=== PATIENT | female | born 1960 | race Caucasian/White ===

== ENCOUNTER 2018-01-12 12:39 | Emergency (ER) | payer BC ==
[~2018-01-12] VITALS: Ht 170.2 cm; Wt 79.9 kg
[2018-01-12 12:47] VITALS: TEMP 36.8; Ht 170.2 cm; Wt 79.9 kg
[2018-01-12] MEDS ORDERED: ONDANSETRON INJ 2 MG/ML 2 ML VIAL IV STA (13:23)
[2018-01-12] MEDS ORDERED: ACETAMINOPHEN 500 MG TAB PO STA (13:23)
[2018-01-12] MEDS ORDERED: KETOROLAC TROMETHAMINE 30 MG/ML VIAL IV STA (13:23)
[2018-01-12] MEDS ORDERED: ALBUT/IPRATROP 3MG/0.5MG NEB 3 ML VIAL INH STA (13:23)
[2018-01-12] MEDS ORDERED: COUGH DROP (SUGAR FREE) LOZ 24 LOZ/1 BOX LOZ STA (13:23)
[2018-01-12] MEDS ORDERED: FAMOTIDINE 20 MG TAB PO ONE (13:30)
[2018-01-12] MEDS ORDERED: BENZONATATE 100MG CAP PO ONE (13:30)
--- NOTE | 2018-01-12 13:41 | DIAGNOSTIC IMAGING REPORT ---
CHEST ONE VIEW PORTABLE CLINICAL HISTORY: 57 years-old Female presenting with EVALUATE RESPIRATORY DISTRESS.DYSPNEA. TECHNIQUE: Portable upright AP view of the chest was obtained. COMPARISON: None. FINDINGS: Cardiomediastinal silhouette normal. Opacity in the right mid to lower lung without obscuration of the right heart border. No pleural effusion or pneumothorax. Degenerative changes of the thoracic spine. Upper abdomen normal. IMPRESSION: 1. Findings consistent with right mid to lower lung pneumonia, likely within the right lower lobe. Electronically signed by: Nehemiah Rdz M.D. 01/12/2018 1:40 PM Dictated Date/Time: 01/12/2018 1:39 PM
[2018-01-12 13:43] VITALS: O2SAT 95
[2018-01-12 13:55] LABS: BASO % 0.1 %; BASO ABS # 0.01 K/uL (0-0.2); EOS % 9.6 %; EOS ABS # 0.78 K/uL (0-0.5); HEMATOCRIT 36.4 % (37-47); HEMOGLOBIN 12.9 g/dL (12.0-16.0); IG# 0.03 K/uL (0.00-0.02); LYMPH % 9.9 %; MEAN CELL VOLUME 89.9 fL (80-100); MEAN CORPUSCULAR HEMOGLOBIN 31.9 pg (25-34); MEAN CORPUSCULAR HGB CONC 35.4 g/dl (32-36); MONO % 2.7 %; MONO ABS # 0.22 K/uL (0.11-0.59); NEUT % 77.3 %; NEUT ABS # 6.28 K/uL (1.4-6.5); PLATELET COUNT 181 K/uL (130-400); RED CELL DISTRIBUTION WIDTH CV 12.7 % (11.5-14.5); WHITE BLOOD COUNT 8.12 K/uL (4.8-10.8)
[2018-01-12 14:07] LABS: ALBUMIN 3.2 gm/dl (3.4-5.0); CALCIUM 8.6 mg/dl (8.5-10.1); CREATININE 0.68 mg/dl (0.60-1.20); POTASSIUM 3.1 mmol/L (3.5-5.1)
[2018-01-12 14:09] LABS: TOTAL PROTEIN 6.8 gm/dl (6.4-8.2)
[2018-01-12] MEDS ORDERED: EPP3/2 IM (14:26)
[2018-01-12] MEDS ORDERED: DICY20TA10 PO (14:26)
[2018-01-12] MEDS ORDERED: CYNI1000 IM (14:26)
[2018-01-12] MEDS ORDERED: TRAM-10 PO (14:26)
[2018-01-12] MEDS ORDERED: LORA-741 PO (14:26)
[2018-01-12] MEDS ORDERED: IBUP-1428 PO (14:26)
[2018-01-12] MEDS ORDERED: LEVOFLOXACIN 750 MG TAB PO ONE (14:30)
[2018-01-12 14:36] LABS: INFLUENZA B ANTIGEN Neg for Influ B (NEG)
[2018-01-12] MEDS ORDERED: LEVO-366 PO (15:06)
[2018-01-12 15:30] VITALS: BP 117/60; PULSE 98; O2SAT 93
--- NOTE | 2018-01-12 16:07 | EMERGENCY ROOM VISIT NOTE ---
History Report prepared by Karthikeyan: Klever Lugo Under the Supervision of: Dr. Colten Bravo M.D. First contact with patient: 12:56 Chief Complaint: FLU LIKE SX Stated Complaint: RASH, HEADACHE, CHILLS, COUGHING History of Present Illness The patient is a 57 year old white female with a past medical history of s/p tubal ligation who presents to the ED with a cc of persistent generalized illness beginning a few days ago. Symptoms include bilateral ear pain, headache , sore throat, fevers, and cough. Cough produces a yellowish sputum. Patient was recently started on Prednisone for leg pain four days ago. She states that she developed a rash two days ago. She was started on Amoxicillin yesterday. Patient has been taking Benadryl as well to help with her rash. Her rash has not improved. She did not have a flu-shot this year. Her grand children have been sick with similar symptoms. Patient is a smoker. Source of History: patient Onset: A few days ago Position: other (Generalized) Quality: other (illness) Timing: other (persistent) Associated Symptoms: + fevers, + headache, + sorethroat, + cough (produces yellow sputum), + rash Note: Additional symptoms: bilateral ear pain. Review of Systems See HPI for pertinent positives and negatives. A total of ten systems were reviewed and were otherwise negative. Past Medical & Surgical Medical Problems: (1) No Known Active Medical Problems (2) Tubal Surgical Problems: (1) S/P tubal ligation Family History No pertinent family history stated. Social History Smoking Status: Current Every Day Smoker Marital Status: Housing Status: lives with family Current/Historical Medications Scheduled Cyanocobalamin (Cyanocobalamin), 1,000 MCG IM MONTHLY Dicyclomine Hcl (Dicyclomine Hcl), 20 MG PO TID Epinephrine (Epipen), 0.3 MG IM UD Scheduled PRN Ibuprofen (Motrin), 800 MG PO Q8H PRN for Pain Lorazepam (Ativan), 0.5 MG PO BID PRN for Anxiety Tramadol (Ultram), 100 MG PO BID PRN for Pain Allergies Coded Allergies: Beef (Unverified Allergy, Unknown, ANAPHYLAXIS, 01/12/18) Latex (Unverified Allergy, Unknown, HIVES, 01/12/18) Pork (Unverified Allergy, Unknown, HIVES AND ITCHING, 01/12/18) Physical Exam Vital Signs Date Time Temp Pulse Resp B/P (MAP) Pulse Ox O2 Delivery O2 Flow Rate FiO2 01/12/18 14:10 98 18 121/45 93 Room Air 01/12/18 13:46 93 01/12/18 13:43 95 Room Air 01/12/18 12:47 36.8 102 20 98/64 95 Room Air Physical Exam GENERAL: Awake, alert, well-appearing, NAD HENT: Normocephalic, atraumatic. Posterior oropharynx is clear. EYES: Normal conjunctiva. Sclera non-icteric. NECK: Supple. No nuchal rigidity. FROM. RESPIRATORY: CTAB, no rhonchi, wheezing, crackles CARDIAC: RRR, no MRG ABDOMEN: Soft, NTND, BS+ MSK: No chest wall TTP, no LE edema NEURO: GCS 15, CN 2-12 intact, moves all 4s on command SKIN: Confluent, macular, pruritic, blanching rash to the bilateral arms, back, torso, and abdomen. Medical Decision & Procedures ER Provider Diagnostic Interpretation: Radiology results as stated below per my review and radiologist interpretation: CHEST ONE VIEW PORTABLE FINDINGS: Cardiomediastinal silhouette normal. Opacity in the right mid to lower lung without obscuration of the right heart border. No pleural effusion or pneumothorax. Degenerative changes of the thoracic spine. Upper abdomen normal. IMPRESSION: 1. Findings consistent with right mid to lower lung pneumonia, likely within the right lower lobe. Electronically signed by: Nehemiah Rdz M.D. 01/12/2018 1:40 PM Laboratory Results 01/12/18 13:35 Red Blood Count 4.05, Mean Corpuscular Volume 89.9, Mean Corpuscular Hemoglobin 31.9, Mean Corpuscular Hemoglobin Concent 35.4, Mean Platelet Volume 10.0, Neutrophils (%) (Auto) 77.3, Lymphocytes (%) (Auto) 9.9, Monocytes (%) (Auto) 2.7, Eosinophils (%) (Auto) 9.6, Basophils (%) (Auto) 0.1, Neutrophils # (Auto) 6.28, Lymphocytes # (Auto) 0.80, Monocytes # (Auto) 0.22, Eosinophils # (Auto) 0.78, Basophils # (Auto) 0.01 01/12/18 13:35 Test 01/12/18 13:35 01/12/18 14:00 White Blood Count 8.12 K/uL (4.8-10.8) Red Blood Count 4.05 M/uL (4.2-5.4) Hemoglobin 12.9 g/dL (12.0-16.0) Hematocrit 36.4 % (37-47) Mean Corpuscular Volume 89.9 fL (80-100) Mean Corpuscular Hemoglobin 31.9 pg (25-34) Mean Corpuscular Hemoglobin Concent 35.4 g/dl (32-36) Platelet Count 181 K/uL (130-400) Mean Platelet Volume 10.0 fL (7.4-10.4) Neutrophils (%) (Auto) 77.3 % Lymphocytes (%) (Auto) 9.9 % Monocytes (%) (Auto) 2.7 % Eosinophils (%) (Auto) 9.6 % Basophils (%) (Auto) 0.1 % Neutrophils # (Auto) 6.28 K/uL (1.4-6.5) Lymphocytes # (Auto) 0.80 K/uL (1.2-3.4) Monocytes # (Auto) 0.22 K/uL (0.11-0.59) Eosinophils # (Auto) 0.78 K/uL (0-0.5) Basophils # (Auto) 0.01 K/uL (0-0.2) RDW Standard Deviation 41.0 fL (36.4-46.3) RDW Coefficient of Variation 12.7 % (11.5-14.5) Immature Granulocyte % (Auto) 0.4 % Immature Granulocyte # (Auto) 0.03 K/uL (0.00-0.02) Anion Gap 5.0 mmol/L (3-11) Est Creatinine Clear Calc Drug Dose 100.5 ml/min Estimated GFR () 113.3 Estimated GFR (Non- 97.8 BUN/Creatinine Ratio 12.5 (10-20) Calcium Level 8.6 mg/dl (8.5-10.1) Total Bilirubin 1.1 mg/dl (0.2-1) Aspartate Amino Transf (AST/SGOT) 146 U/L (15-37) Alanine Aminotransferase (ALT/SGPT) 206 U/L (12-78) Alkaline Phosphatase 172 U/L (45-117) Total Protein 6.8 gm/dl (6.4-8.2) Albumin 3.2 gm/dl (3.4-5.0) Globulin 3.6 gm/dl (2.5-4.0) Albumin/Globulin Ratio 0.9 (0.9-2) Monoscreen NEG (NEG) Influenza Type A Antigen Neg for Influ A (NEG) Influenza Type B Antigen Neg for Influ B (NEG) Laboratory results reviewed by me Medications Administered Medications (Trade) Dose Ordered Sig/Yudi Route Start Time Stop Time Status Last Admin Dose Admin Acetaminophen (Tylenol Tab) 1,000 mg NOW STAT PO 01/12/18 13:23 01/12/18 13:25 DC 01/12/18 13:52 1,000 MG Albuterol/ Ipratropium (Duoneb) 3 ml NOW STAT INH 01/12/18 13:23 01/12/18 13:26 DC 01/12/18 13:52 3 ML Ondansetron HCl (Zofran Inj) 4 mg NOW STAT IV 01/12/18 13:23 01/12/18 13:26 DC 01/12/18 13:53 4 MG Benzonatate (Tessalon Perles Cap) 100 mg NOW ONCE PO 01/12/18 13:30 01/12/18 13:31 DC 01/12/18 13:53 100 MG Menthol (Nice Varghese) 1 varghese NOW STAT VARGHESE 01/12/18 13:23 01/12/18 13:26 DC 01/12/18 13:53 1 VARGHESE Ketorolac Tromethamine (Toradol Inj) 30 mg NOW STAT IV 01/12/18 13:23 01/12/18 13:26 DC 01/12/18 13:53 30 MG Famotidine (Pepcid Tab) 20 mg NOW ONCE PO 01/12/18 13:30 01/12/18 13:31 DC 01/12/18 13:53 20 MG Diphenhydramine HCl (Benadryl Cap) 25 mg NOW ONCE PO 01/12/18 13:30 01/12/18 13:31 DC 01/12/18 13:52 25 MG ECG Per My Interpretation Indication: other (illness) Rate (beats per minute): 91 Rhythm: normal sinus Findings: other (Normal axis. Normal intervals. No STS changes or TWI. ) ED Course 1310: The patient was evaluated in room A11B. A complete history and physical exam was performed. Medical Decision The patient is a 57 year old white female with a past medical history of s/p tubal ligation who presents to the ED with a cc of persistent generalized illness beginning a few days ago. Symptoms include bilateral ear pain, headache , sore throat, fevers, and cough. Differential diagnosis: Etiologies such as viral syndrome, otitis, pharyngitis, pneumonia, influenza, meningitis, urinary tract infection, sepsis, bacteremia, as well as others were entertained. Prior records were reviewed. Patient was seen and evaluated the bedside. Patient did complain of multiple infectious symptoms. They have been ongoing for approximately 1 week's time. Patient has a cough. Patient does admit to smoking. Patient also does complain of some mild right upper quadrant discomfort. Patient did have blood work completed, EKG, troponin, LFTs, lipase, chest x- ray. Patient's chest x-ray concerning for right lower lobe pneumonia. Patient does have mild elevations in her LFTs. Patient was told this may be viral in nature. This rash may also be viral. Do not believe this is anaphylaxis SJS or TEN. Patient was told to avoid alcohol or Tylenol given the mild elevations in her LFTs. Patient was also told that if she does become jaundice have repetitive vomiting or increasing abdominal pain should revert return for further evaluation treatment. Patient has been able tolerate p.o. at the bedside. Given the patient's chest x-ray believe the pneumonia is likely responsible for the majority of her symptoms especially given her concomitant tobacco use. Patient was counseled on smoking cessation. CURB-65 score of 0. Believe she is suitable for outpatient treatment. Patient has stable vitals. Patient was given recommendations for symptom control. Patient was also told to follow-up with her primary care physician to have repeat LFTs completed. Patient was also told to continue Benadryl and Pepcid and if she had persistent rash she should follow-up with either her PCP or arrange for specialty follow- up. Patient was given strict follow-up, discharge, and return precautions. All questions were answered. Patient was deemed suitable for outpatient follow- up at this time. Patient agreed with the plan of care and was safely discharged home. Medication Reconcilliation Current Medication List: was personally reviewed by me Blood Pressure Screening Patient's blood pressure: Low blood pressure Blood pressure disposition: Did not require urgent referral Impression Primary Impression: Pneumonia Additional Impressions: Transaminitis Encounter for smoking cessation counseling Hypokalemia Scribe Attestation The scribe's documentation has been prepared under my direction and personally reviewed by me in its entirety. I confirm that the note above accurately reflects all work, treatment, procedures, and medical decision making performed by me. Departure Information Dispostion Home / Self-Care Prescriptions Levofloxacin (Levaquin) 500 Mg Tab 750 MG PO DAILY for 7 Days, #11 TAB Prov: Colten Bravo M.D. 01/12/18 Referrals No Doctor, Assigned (PCP) Patient Instructions Aspartate Transaminase, ED Pneumonia Adult, ED Smoking Cessation, [facility] Additional Instructions Please return to the emergency department if you have worsening or recurrent symptoms not amenable to at-home treatment. Please call for a follow-up appointment with her primary care physician. Please take your medications as prescribed. If you have other concerns and/or complaints please feel free to also call your primary care physician's office or return the ED for further evaluation, management, and treatment. You may take 600 mg Ibuprofen every 6 hours as needed for pain with food for no more than 2 consecutive days. Avoid Tylenol or alcohol. Please hydrate with liberal amounts of clear decaffeinated liquids. You may try Mucinex to help as an expectorant. Please consider smoking cessation. Consider continuing Benadryl and Pepcid for your rash. Follow-up with your PCP and/or specialist as needed. As discussed he did have mild elevations in her liver function test. If you do become jaundice have severe abdominal pain, vomiting or cannot tolerate your medications please return for further evaluation. Otherwise, please follow-up with your PCP to have these levels checked again. In the meantime again please avoid things like Tylenol and alcohol. Take your medications as prescribed. If taking an antibiotic consider taking a probiotic and/or eating yogurt, but at the least, please take with food as it can cause upset stomach. You have been examined and treated today on an emergency basis only. This is not a substitute for, or an effort to provide, complete comprehensive medical care. It is impossible to recognize and treat all injuries or illnesses in a single emergency department visit. It is therefore important that you follow up closely with [facility], your PCP, and/or your specialist(s). Call as soon as possible for an appointment. Thank you for your time and consideration. I look forward to speaking with you again soon. Please don't hesitate to call us if you have any questions. Problem Qualifiers Primary Impression: Pneumonia Pneumonia type: due to unspecified organism Laterality: right Lung location : lower lobe of lung Qualified Codes: J18.1 - Lobar pneumonia, unspecified organism
== END 2018-01-12 15:31 | disposition home or self-care (01) ==
LOC: C.EDB 12:42 → C.EDA 15:31
DX: J18.1 Lobar pneumonia, unspecified organism (principal); Z98.51 Tubal ligation status; F17.210 Nicotine dependence, cigarettes, uncomplicated; Z79.899 Other long term (current) drug therapy; Z91.018 Allergy to other foods; Z91.040 Latex allergy status; R74.0 Nonspecific elevation of levels of transaminase and lactic acid dehydrogenase [LDH]; E87.6 Hypokalemia